=== PATIENT | female | born 1985 | race Caucasian/White ===

== ENCOUNTER 2019-01-28 05:15 | Inpatient (IN) | payer OTHER ==
[~2019-01-28] VITALS: Ht 154.9 cm; Wt 79.1 kg
[2019-01-28 05:15] VITALS: Ht 154.9 cm; Wt 79.1 kg
[2019-01-28] MEDS ORDERED: FER325 PO (05:25)
[2019-01-28] MEDS ORDERED: PREN1TAB13 PO (05:25)
[2019-01-28] MEDS ORDERED: FOLI-49 PO (05:25)
[2019-01-28] MEDS ORDERED: MISOPROSTOL 200 MCG TAB PR PRN ×2 (05:30→12:30)
[2019-01-28] MEDS ORDERED: OXYTOCIN 30 UNITS/LR 500 ML IV PRN ×2 (05:30→12:30)
[2019-01-28] MEDS ORDERED: CEFAZOLIN 2 GM/50 ML (PMX) 50 ML IVPB SCH (05:30)
[2019-01-28] MEDS ORDERED: OXYTOCIN 30 UNITS/LR 500 ML IV SCH ×2 (05:30→12:06)
[2019-01-28] MEDS ORDERED: METHYLERGONOVINE 0.2 MG INJ IM PRN ×2 (05:30→12:30)
[2019-01-28] MEDS ORDERED: CARBOPROST 250 MCG INJ IM PRN ×2 (05:30→12:30)
[2019-01-28 05:39] VITALS: BP 132/80; PULSE 79; RESP 17
[2019-01-28] MEDS: LACTATED RINGER'S 1,000 ML IV SCH ×2 (05:58→07:55)
[2019-01-28] MEDS ORDERED: OXYTOCIN 30 UNITS/LR 500 ML BAG IV ONE (07:00)
[2019-01-28] MEDS ORDERED: ONDANSETRON 4 MG INJ IV STA (07:33)
--- NOTE | 2019-01-28 07:37 | PREAC ---
Date/Time of Note Date/Time of Note DATE: 01/28/19 TIME: 07:35 Anesthesia Eval and Record Evaluation Time Pre-Procedure Interview DATE: 01/28/19 TIME: 07:35 Age 33 Sex female NPO: 8 hrs Preoperative diagnosis Repeat and BTL Planned procedure and BTL Past Medical History Past Medical History: Includes : : (5), Para: (3), Gestational age: (39) Surgery & Anesthesia Issues No known issue Meds Anticoagulation: No Beta Sabina within 24 hr: No Reason Beta Sabina not given: Pt. not on B-Sabina Reported Medications Ferrous Sulfate* (Ferrous Sulfate*) 325 Mg Tabec, 325 MG PO DAILY, TAB 01/28/19 Folic Acid* (Folic Acid*) 1 Mg Tablet, 1 MG PO DAILY, TAB 01/28/19 Pnv95/Ferrous Fumarate/FA ( Vitamins Tablet) 1 Each Tablet, 1 EACH PO, TAB 01/28/19 Current Medications Lactated Ringer's 1,000 ml @ 125 mls/hr Q8H IV Last administered on 01/28/19at 05:58; Admin Dose 125 MLS/HR; Start 01/28/19 at 05:25 Cefazolin Sodium/ Dextrose 50 ml @ 100 mls/hr ONCE IVPB ; Start 01/28/19 at 05:30 Oxytocin/Lactated Ringer's 500 ml @ 125 mls/hr POST IV ; Start 01/28/19 at 05:30 Oxytocin/Lactated Ringer's 500 ml @ 0 mls/hr ONCE PRN IV .VAGINAL BLEEDING; Start 01/28/19 at 05:30 Methylergonovine Maleate (Methergine) 0.2 mg ONCE PRN IM .VAGINAL BLEEDING; Start 01/28/19 at 05:30 Carboprost Tromethamine (Hemabate) 250 mcg ONCE PRN IM .VAGINAL BLEEDING; Start 01/28/19 at 05:30 Misoprostol (Cytotec) 1,000 mcg ONCE PRN ME .VAGINAL BLEEDING; Start 01/28/19 at 05:30 Meds reviewed: Yes Allergies Coded Allergies: No Known Allergy (Unverified , 01/28/19) Allergies Reviewed: Yes Labs/Studies Labs Reviewed: Reviewed by anesthesiologist Result Diagram: 01/28/19 0600 Laboratory Tests 01/28/19 06:00 Blood Bank Test 01/28/19 06:00 Antibody Screen NEGATIVE Blood Type O POSITIVE Rh Immune Globulin Candidate NO test: Positive Studies: ECG (n/a), CXR (n/a) Pre-procedure Exam Last vitals Vital Signs Date Temp Pulse Resp B/P (MAP) Pulse Ox O2 O2 Flow FiO2 Time Delivery Rate 01/28/19 97.8 79 17 132/80 Room Air 05:39 (97) Airway: Adequate mouth opening, Adequate thyromental dist Mallampati: Mallampati II Teeth: Normal Lung: Normal Heart: Normal ASA Physical Status ASA physical status: 2 Emergency: None Planned Anesthetic Neuraxial: Spinal Planned Pain Management Sub-arachniod narcotics, Parenteral pain med Pre-operative Attestations Prior to commencing anesthesia and surgery, the patient was re-evaluated, there was verification of: *The patient's identity *The results of appropriate recent lab work and preoperative vital signs *The above evaluation not changing prior to induction *Anesthetic plan, risk benefits, alternative and complications discussed with patient/family; questions answered; patient/family understands, accepts and wishes to proceed. JOSEPH YAO MD Jan 28, 2019 07:37
[2019-01-28] MEDS ORDERED: CITRIC ACID/NA CITRATE 30 ML CUP ONE (07:48)
[2019-01-28] MEDS ORDERED: ONDANSETRON 4 MG INJ ONE ×2 (07:48→07:49)
[2019-01-28] MEDS ORDERED: METOCLOPRAMIDE 10 MG INJ ONE (07:49)
[2019-01-28] MEDS ORDERED: DEXAMETHASONE 4 MG/ML 1 ML INJ ONE (07:49)
[2019-01-28] MEDS ORDERED: KETOROLAC 30 MG INJ ONE (07:49)
[2019-01-28] MEDS ORDERED: EPHEDrine 25 MG/5 ML SYG ONE (07:49)
[2019-01-28] MEDS ORDERED: morphine SULFATE/PF (10 MG/10 ML) INJ ONE (07:49)
[2019-01-28] MEDS ORDERED: OXYTOCIN 10 UNIT INJ ONE (07:49)
[2019-01-28] MEDS ORDERED: CITRIC ACID/NA CITRATE 30 ML CUP PO ONE (08:00)
--- NOTE | 2019-01-28 08:16 | HP ---
Date/Time of Note Date/Time of Note DATE: 01/28/19 TIME: 08:14 OB - History Hx of Present Chief Complaint: scheduled Estimated Due Date: Feb 04, 2019 : 5 Para: 3 Spontaneous : 1 Therapeutic : 0 Care: Good Care Ultrasounds: Normal mid trimester US Obstetrical Complications: None Medical Complications: None Past Family/Social History * Past Medical, Surgical, Family and Obstetric Histories reviewed from chart. GBS Status: Negative OB Admission Exam Vital Signs Vital Signs Vital Signs Date Temp Pulse Resp B/P (MAP) Pulse Ox O2 O2 Flow FiO2 Time Delivery Rate 01/28/19 97.8 79 17 132/80 Room Air 05:39 (97) Physical Exam HEENT: WNL Heart: Rhythm Normal Lungs: Clear, Equal Abdomen: WNL Extremities: Normal Reflexes: Normal Heart Rate: 120's Accelerations: Accelerations Present Decelerations: No Decelerations Varibility: Moderate Last 72 hours Lab Results CBC & BMP 01/28/19 06:00 OB Assessment/Plan Reason for admission: section Other Assessment: voluntary sterilization Plan: Section, Other Other plan: Bilateral tubal ligation YOKASTA MORGAN MD Jan 28, 2019 08:16
[2019-01-28] MEDS ORDERED: FENTAnyl 50 MCG/ML VIAL IV PRN ×2 (08:30)
[2019-01-28] MEDS ORDERED: NALOXONE (0.4 MG/ML) INJ IV PRN (08:30)
[2019-01-28] MEDS ORDERED: OXYCODONE/ACETAMINOPHEN (5/325) TAB PO PRN ×2 (08:30→12:30)
[2019-01-28] MEDS ORDERED: morphine 2 MG INJ IV PRN ×2 (08:30)
[2019-01-28] MEDS ORDERED: KETOROLAC 30 MG INJ IV PRN (08:30)
[2019-01-28] MEDS ORDERED: EPHEDrine SULFATE 50 MG/5 ML SYG IV PRN (08:30)
[2019-01-28] MEDS ORDERED: NALBUPHINE HCL (10 MG/1 ML) INJ IV PRN (08:30)
[2019-01-28] MEDS ORDERED: ACETAMINOPHEN 500 MG TAB PO PRN (08:30)
[2019-01-28] MEDS ORDERED: HYDROmorphONE 0.5 MG/0.5 ML SYG IV PRN ×2 (08:30)
[2019-01-28] MEDS ORDERED: ALBUMIN HUMAN 5% 250 ML IV PRN (08:30)
[2019-01-28] MEDS ORDERED: MEPERIDINE 25 MG INJ IV PRN (08:30)
[2019-01-28] MEDS ORDERED: DIPHENHYDRAMINE 50 MG INJ IV PRN ×2 (08:30)
[2019-01-28] MEDS ORDERED: HYDROCODONE/APAP (5/325) TAB PO PRN (08:30)
[2019-01-28] MEDS ORDERED: ONDANSETRON 4 MG INJ IV PRN ×2 (08:30)
[2019-01-28] MEDS ORDERED: HYDROmorphONE 1 MG/5 ML IV SYRINGE IV PRN ×2 (08:30)
--- NOTE | 2019-01-28 09:35 | PAC ---
Date/Time of Note Date/Time of Note DATE: 01/28/19 TIME: 09:35 Post-Anesthesia Notes Post-Anesthesia Note Last documented vital signs Vital Signs Date Temp Pulse Resp B/P (MAP) Pulse Ox O2 O2 Flow FiO2 Time Delivery Rate 01/28/19 97.8 79 17 132/80 98 Room Air 09:39 (97) Activity: WNL Respiratory function: WNL Cardiovascular function: WNL Mental status: Baseline Pain reasonably controlled: Yes Hydration appropriate: Yes Nausea/Vomiting absent: Yes JOSEPH YAO MD Jan 28, 2019 09:35
--- NOTE | 2019-01-28 10:00 | OPPN ---
Date/Time of Note Date/Time of Note DATE: 01/28/19 TIME: 09:57 Operative Report Planned Procedure Procedure date Jan 28, 2019 Procedure(s) Repeat c/s and BTL Performed by see signature line Director [employer]: MALINA HENDRICKS 2nd Director [employer] none Anesthesiologist: JOSEPH YAO MD Pre-procedure diagnosis Term , previous c/s and voluntary sterilization [id number] Anesthesia Type: Kzyal7d spinal Post-Procedure Post-procedure diagnosis Same Findings Live Baby [], Apgars [] and [], weight [], position [], [] presentation []cord. Estimated Blood Loss: other (600 ml) Specimen(s) Placenta and Fallopian tubes Grafts/Implant(s) none Complication(s) none YOKASTA MORGAN MD Jan 28, 2019 09:59
--- NOTE | 2019-01-28 10:58 | OPR ---
DATE OF OPERATION: 01/28/2019 PREOPERATIVE DIAGNOSES: at term with previous section, bilateral sterilization. POSTOPERATIVE DIAGNOSES: at term with previous section, bilateral sterilization. OPERATION PERFORMED: Repeat low transverse section and bilateral tubal ligation. AUTOMATIC MACHINES SUPERVISOR: Dr. Ervin. ANESTHESIA: Spinal. ANESTHESIOLOGIST: Dr. Beyer. PROCEDURE: The patient was taken to the operating room, placed on the operating table. After succes sful spinal anesthesia was given, the patient was placed in supine position. The area was prepared a nd draped in the usual sterile fashion. Spinal anesthesia was satisfactory. Using a scalpel, Pfanne nstiel incision was made about 2 fingerbreadths above the symphysis pubis. Incision was carried down to the fascia. The fascia was incised and extended bilaterally with Oakes scissors. Two Felipe's we re used to separate the fascia from the muscle. The muscle was dissected down to peritoneum. The pe ritoneum was secured with Kellys and incised with Metzenbaum scissors. Using a scalpel, a small frederick sverse incision was made in the dorsal of the uterus. Upon entering the uterine cavity were inserted to extend the incision bilaterally, curved up. Baby was delivered from cephalic presentation. Afte r suctioning clear of amniotic fluid infant was handed off to the team in attendance. s were 8 and 9. The placenta was delivered without difficulty. Uterus was closed with #1 Monocryl c ontinuous locked. After assuring hemostasis, both ovaries and tubes were inspected, all looked julia l. The right fallopian tube was grasped with a Byron clamp. Using 0 plain suture ligature, a 5 cm segment of the right fallopian tube was doubly ligated. Using Metzenbaum scissors, a portion of the right fallopian tube above the ligated area was excised and sent to pathology. Same procedure was r epeated on left fallopian tube. After assuring hemostasis, the peritoneum was closed with 0 chromic continuous. Fascia was closed with #1 Vicryl continuous in 2 segments. Subcutaneous tissue was reap proximated with 2-0 plain. The skin was closed with ravi. ESTIMATED BLOOD LOSS: 600 mL. COUNTS: All counts were correct. Dictated By: YOKASTA NYE/VIDA Conf#: [id number] DID#: [id number] CC: YOKASTA MORGAN MD;*[facility]*
[2019-01-28 12:00] VITALS: BP 119/66; PULSE 85; RESP 18
[2019-01-28] MEDS ORDERED: LACTATED RINGER'S 1,000 ML IV SCH (12:06)
[2019-01-28 12:30] VITALS: BP 125/58; PULSE 88; RESP 20
[2019-01-28] MEDS ORDERED: LANOLIN HPA 1 PKT TOP PRN (12:30)
[2019-01-28 13:30] VITALS: BP 114/68; PULSE 96; RESP 18
[2019-01-28] MEDS: IBUPROFEN 800 MG TAB PO SCH ×2 (14:00→22:00)
[2019-01-28 16:00] VITALS: BP 114/68; PULSE 80; RESP 18
[2019-01-28 19:45] VITALS: BP 113/69; PULSE 88; RESP 18
[2019-01-28] MEDS: SENNA/DOCUSATE NA (8.6MG/50MG) TAB PO SCH (21:30)
[2019-01-29] VITALS: BP 112/66; PULSE 86; RESP 16
[2019-01-29] MEDS: LACTATED RINGER'S 1,000 ML IV SCH (00:28)
[2019-01-29 04:30] VITALS: BP 105/48; PULSE 84; RESP 18
[2019-01-29] MEDS: IBUPROFEN 800 MG TAB PO SCH ×3 (07:46→21:14)
[2019-01-29 08:00] VITALS: BP 108/53; PULSE 81; RESP 16
[2019-01-29] MEDS: SENNA/DOCUSATE NA (8.6MG/50MG) TAB PO SCH ×2 (09:05→21:14)
--- NOTE | 2019-01-29 13:42 | QN ---
Documentation Comment No complaint Afebrile VSS Abdomen soft ND POD #1 stable Ambulate Advance diet Fe supplement. YOKASTA MORGAN MD Jan 29, 2019 13:42
[2019-01-29] MEDS: OXYCODONE/ACETAMINOPHEN (5/325) TAB PO PRN (14:07)
[2019-01-29 15:45] VITALS: BP 111/69; PULSE 72; RESP 18
[2019-01-29 20:00] VITALS: BP 112/65; RESP 18
[2019-01-29] MEDS: FERROUS SULFATE (EC) 325 MG TAB PO SCH (21:14)
[2019-01-30 03:25] VITALS: BP 111/53; RESP 19
[2019-01-30] MEDS: IBUPROFEN 800 MG TAB PO SCH ×3 (05:19→23:48)
[2019-01-30 08:15] VITALS: BP 112/67; PULSE 73; RESP 18
[2019-01-30] MEDS: FERROUS SULFATE (EC) 325 MG TAB PO SCH ×3 (09:21→21:14)
[2019-01-30] MEDS: SENNA/DOCUSATE NA (8.6MG/50MG) TAB PO SCH ×2 (09:21→21:15)
--- NOTE | 2019-01-30 10:11 | QN ---
Documentation Comment No complaint Afebrile VSS Abdomen soft Stable Continue with present care. YOKASTA MORGAN MD Jan 30, 2019 10:11
[2019-01-30 15:50] VITALS: BP 115/70; PULSE 72; RESP 18
[2019-01-30] MEDS: OXYCODONE/ACETAMINOPHEN (5/325) TAB PO PRN (19:21)
[2019-01-30 20:10] VITALS: BP 118/76; PULSE 77; RESP 18
[2019-01-31 03:30] VITALS: BP 125/66; PULSE 80; RESP 18
[2019-01-31] MEDS: IBUPROFEN 800 MG TAB PO SCH ×2 (05:51→14:38)
[2019-01-31 08:00] VITALS: BP 111/73; PULSE 73; RESP 18
[2019-01-31] MEDS: SENNA/DOCUSATE NA (8.6MG/50MG) TAB PO SCH (08:38)
[2019-01-31] MEDS: FERROUS SULFATE (EC) 325 MG TAB PO SCH ×2 (08:38→14:38)
[2019-01-31] MEDS ORDERED: DIPHTH/TET/ACEL PERTUSS (ADULT) 0.5 ML VIAL IM* ONE (09:00)
[2019-01-31 15:31] VITALS: BP 115/79; PULSE 74; RESP 19
--- NOTE | 2019-01-31 16:18 | DS ---
Date/Time of Note Date/Time of Note DATE: 01/31/19 TIME: 16:18 Obstetrical Discharge Record Final Diagnosis Final Diagnosis: Term delivered Section Section: Repeat Condition on Discharge Physical Assessment Voiding: Yes Bowel Movement: Yes Breast: Soft, non-tender, Filling Fundus: Firm Abdomen and Incision: Incision intact Calf Tenderness: No Patient Condition: Stable YOKASTA MORGAN MD Jan 31, 2019 16:18
--- NOTE | 2019-02-01 17:26 | DELSUM ---
Delivery Summary A-C Datetime Report Generated by CPN: 02/01/2019 17:26 DELIVERY PERSONNEL Propellant Charge Loader: Brayan, Margie MATERNAL INFORMATION Delivery Anesthesia: Spinal Medications in Delivery: See anesthesia flow sheet Delivery QBL (ml): 600 Placenta Cultured: No Maternal Complications: None Other Maternal Complications: RC/S WITH BTL Schedule LABOR SUMMARY EDC: 02/04/2019 00:00 No. Babies in Womb: 1 Attempted: No Labor Anesthesia: None LABOR INFORMATION Reason for Induction: Not Applicable Oxytocin: N/A Group B Beta Strep: Negative Antibiotics # of Doses: Ancef 2 grams x1 Antibiotics Time of Last Dose: 01/28/2019 08:03 Steroids Given: None Reason Steroids Not Administered: Not Applicable MEMBRANES Membranes Rupture Method: Artificial Rupture of Membranes: 01/28/2019 08:36 Length of Rupture (hr): 0.02 Amniotic Fluid Color: Clear Amniotic Fluid Amount: Small Amniotic Fluid Odor: Normal STAGES OF LABOR Stage 3 hr: 0 Stage 3 min: 1 CSECTION DELIVERY Primary Indication: Repeat Elective Secondary Indication: N/A CSection Urgency: Non Elective CSection Incidence: Repeat Labor: N/A Elective: N/A CSection Incision: Lower Uterine Transverse Sterilization Procedure: [place] BABY A INFORMATION Infant Delivery Date/Time: 01/28/2019 08:37 Method of Delivery: Born in Route : No : N/A Forceps: N/A Vacuum Extraction: N/A Shoulder Dystocia : N/A SHOULDER DYSTOCIA BABY A Delivery Date/Time: 01/28/2019 08:37 PRESENTATION/POSITION BABY A Presentation: Cephalic Cephalic Presentation: Vertex Vertex Position: Left Occipital Posterior Breech Presentation: N/A PLACENTA INFORMATION BABY A Placenta Delivery Time : 01/28/2019 08:38 Placenta Method of Delivery: Manual Removal Placenta Status: Delivered SCORES BABY A Heart Rate 1 min: >100 bpm Resp Effort 1 min: Good Cry Reflex Irritability 1 min: Cough/Sneeze/Pulls Away Muscle Tone 1 min: Active Motion Color 1 min: Blue/Pale Resuscitation Effort 1 min: Tactile Stimulation; Oxygen; PPV/NCPAP SCORE 1 MIN: 8 Heart Rate 5 min: >100 bpm Resp Effort 5 min: Good Cry Reflex Irritability 5 min: Cough/Sneeze/Pulls Away Muscle Tone 5 min: Active Motion Color 5 min: Body [place], Extremit Blue Resuscitation Effort 5 min: Tactile Stimulation SCORE 5 MIN: 9 INFANT INFORMATION BABY A Gestational Age at Delivery: 39.0 Gestational Status: Full Term- 39- 40.6 Weeks Outcome : Liveborn Condition : Stable Sex: Female IDENTIFICATION/MEDS BABY A ID Band Number: [id number] ID Band Location: Right Leg; Left Arm Sensor Applied: Yes Sensor Number: [id number] Sensor Location : Cord Clamp Vitamin K Given : Not Given Erythromycin Given: Not Given WEIGHT/LENGTH BABY A Infant Birthweight (gm): 3180 Weight (lb): 7 Infant Weight (oz): 0 Infant Length (in): 19.50 Infant Length (cm): 49.53 CORD INFORMATION BABY A No. Cord Vessels: 3 Nuchal Cord : N/A Cord Blood Taken: Yes Infant Suction: Mouth; Nose ASSESSMENT BABY A Complications: None Physical Findings at Delivery: Within Normal Limits Infant Respirations: Appears Normal Strategic Client Executive/ALS Called : No Infant Care By: Alfredo BUTT/Asad RT Transferred To: Remains with Mother
== END 2019-01-31 17:25 | disposition home or self-care (01) | DRG 785 ==
LOC: L-D 05:15 → PP1 12:09
PROVIDERS: ADMIT Obstetrics & Gynecology; ATTEND Obstetrics & Gynecology
PROC: 0UL70ZZ Occlusion of Bilateral Fallopian Tubes, Open Approach (ICD-10-PCS; 2019-01-28)
PROC: 3E033VJ Introduction of Other Hormone into Peripheral Vein, Percutaneous Approach (ICD-10-PCS; 2019-01-28)
PROC: 10D00Z1 Extraction of Products of Conception, Low, Open Approach (ICD-10-PCS; principal; 2019-01-28 07:30)
DX: O34.211 Maternal care for low transverse scar from previous cesarean delivery (principal); Z3A.39 39 weeks gestation of pregnancy; Z37.0 Single live birth
CPT/HCPCS: 85025; 85610; 85730; 86592; 86850; 86900; 86901; 87340; 88302; 99464; J0690; J1100; J1885; J2274; J2405; J2590; J2765; J7120